=== PATIENT | female | born 1995 | race Caucasian/White ===

== ENCOUNTER 2016-10-17 08:58 | Emergency (ER) | payer OTHER ==
[~2016-10-17] VITALS: Ht 154.9 cm; Wt 47.1 kg
[2016-10-17] MEDS ORDERED: ONDA4TAB10 PO (10:07)
[2016-10-17 10:10] LABS: HEMOGLOBIN 12.7 g/dL (11.7-16.4); WHITE BLOOD COUNT 3.8 x10^3/uL (4.5-13.2)
[2016-10-17 10:22] LABS: ASPARTATE AMINO TRANSFERASE 15 U/L (15-37); BLOOD UREA NITROGEN 7 mg/dL (7-18)
[2016-10-17 11:17] VITALS: BP 111/66
== END 2016-10-17 11:19 | disposition home or self-care (01) ==
LOC: ED 09:31
DX: G89.29 Other chronic pain (principal); R10.84 Generalized abdominal pain; R11.0 Nausea
CPT/HCPCS: 36415; 76700; 80053; 81003; 83690; 84703; 85025; 99285